=== PATIENT | female | born 1985 | race Caucasian/White ===

== ENCOUNTER 2017-01-30 23:35 | Inpatient (IN) | payer MEDICAID ==
[~2017-01-30] VITALS: Ht 167.6 cm; Wt 67.6 kg
--- NOTE | 2017-01-31 02:51 | NUR ---
RECEIVED 31 Y/O F FOR EVAL OF RLQ PAIN AND NAUSEA SINCE LAST NIGHT. RATES PAIN 10/10 AT THIS TIME, DENIES URINARY SYMPTOMS OR VOMITING/DIARRHEA. RESP E/U, NAD NOTED AT THIS TIME.
--- NOTE | 2017-01-31 02:54 | NUR ---
PT OFF UNIT VIA WHEELCHAIR FOR CT SCAN
[2017-01-31 03:08] LABS: BASOPHIL % 1.4 % (0-2); PLATELET COUNT 164 x10^3mcL (130-400); RED CELL DISTRIBUTION WIDTH 11.7 % (11.5-14.5)
[2017-01-31 03:11] LABS: CALCIUM 9.2 mg/dL (8.5-10.1); CHLORIDE SERUM 103 mmol/L (98-107); CREATININE SERUM 0.8 mg/dL (0.6-1.0); GFR1 > 60 mL/min; GLUCOSE SERUM 99 mg/dL (74-106); POTASSIUM SERUM 3.3 mmol/L (3.5-5.1); SODIUM SERUM 139 mmol/L (136-145)
[2017-01-31 03:15] LABS: ALBUMIN 4.6 g/dL (3.4-5.0); ALKALINE PHOSPHATASE 95 U/L (46-116); ALT/SGPT 39 U/L (14-59); AST/SGOT 12 U/L (15-37); BILIRUBIN TOTAL 0.92 mg/dL (0.20-1.00); LIPASE 316 IU/L (73-393); MAGNESIUM 2.3 mg/dL (1.8-2.4)
[2017-01-31 03:16] LABS: TOTAL PROTEIN, SERUM 8.4 g/dL (6.4-8.2)
[2017-01-31 03:29] LABS: microscopic required? NO
[2017-01-31 03:34] LABS: UA SPECIFIC GRAVITY >=1.030 (1.005-1.035); urine erythrocyte NEGATIVE (NEGATIVE)
--- NOTE | 2017-01-31 04:13 | NUR ---
REPORT CALLED TO JAMES RIVERA FOR CONTINUATION OF CARE.
[2017-01-31 05:09] LABS: CHOLESTEROL/HDL RATIO 2.7
[2017-01-31 05:15] LABS: FREE T4 1.04 ng/dL (0.76-1.46); FREE THYROXINE INDEX 2.7 ug/dL (1.4-4.5); T4(THYROXINE) 8.3 ug/dL (4.7-13.3)
--- NOTE | 2017-01-31 05:17 | NUR ---
RECEIVED FROM ER, TRANSPORTED VIA [facility]. ACCOMPANIED BY SIGNIFICANT OTHER, PT STATED OK TO HAVE SIGNIFICANT OTHER IN ROOM WHEN ASKING QUESTIONS. PT SOUGHT ADMISSION DUE TO RIGHT LOWER ABDOMINAL PAIN WITH NAUSEA AND VOMITTING. STATED PRIOR TO ADMISSION PAIN WAS SHARP AT 10/10 ON PAIN SCALE, STATED GOOD RELIEF FROM PAIN AFTER RECEIVING MEDICATIONS IN ER, DOWN TO 5/10 AT THIS TIME, WITHOUT NAUSEA. STARTED ORDERED IVF OF NS AT 110ML/HR TO IV SITE TO RIGHT AC, FLUSHED WELL. AAO X 4. SPEECH CLEAR AND APPROPRIATE. BREATHING EVEN AND UNLABORED ON ROOM AIR. HOB ELEVATED 30 DEG. UPPER SIDE RAILS RAISED, BED IN LOWEST POSITION. ORIENTED TO ROOM ENVIRONMENT, INSTRUCTED ON USE OF CALL LIGHT TO CALL FOR ASSISTANCE. INSTRUCTED NO EATING OR DRINKING.
[2017-01-31 05:26] LABS: AMPHETAMINE QUAL UR NONE DETECTED (NEG <=1000)
[2017-01-31 05:55] VITALS: BP 107/65
--- NOTE | 2017-01-31 06:08 | NUR ---
AWAKE AND ALERT, KEPT NPO SINCE ADMISSION. BREATHING EVEN AND UNLABORED ON ROOM AIR.
[2017-01-31 06:18] LABS: T3 TOTAL 1.09 ng/mL
--- NOTE | 2017-01-31 07:22 | NUR ---
OR NURSE NAV CALLED, STATED DR. GAMING WILL DO SURGERY AFTER 1ST CASE TODAY. GAVE REPORT. INFORMED DAY SHIFT NURSE MARY.
--- NOTE | 2017-01-31 07:45 | NUR ---
AWAKE,ALERT AND ORIENTED. STILL COMPLAINING OF ABD. PAIN 5/10 BUT DENIES NAUSEA AND VOMITTING.NPO FOR SX THIS AM. CONT. IV FLUIDS ORDERED.NO ACUTE RE4SP. DISTRESS NOTED. WILL CONT. PLAN OF CARE.
--- NOTE | 2017-01-31 08:14 | NUR ---
PT. WENT DOWN TO OR VIA MALLORY REPORT GIVEN TO OR NURSE.
--- NOTE | 2017-01-31 08:38 | NUR ---
[facility] REFERRAL RECEIVED ON 01/31/2017 FOR "ADMITTED W/ POTENTIAL RISK DIAGNOSIS". REFERRAL REASON DOES NOT MEET HIGH NUTRITION RISK PER HOSPITAL POLICY. THE PT WAS ADMITTED W/ ACUTE APPENDICITIS AND WILL BE SEEN AND PRIORITIZED BY THE NUTRITION SCREENING PRIORITIZING GUIDELINES LOW NUTRITION RISK AND SEEN W/IN [address]
[2017-01-31 09:00] VITALS: BP 95/54
--- NOTE | 2017-01-31 11:00 | NUR ---
PT.BACK FROM RECOVERY ROOM VIA [facility] AWAKE ,ALERT AND DENIES ANY PAIN AT THIS TIME. CALLLIGHT W/ IN REACH. MADE COMFORTABLE IN BED/. S/P LAP APPY W/ ABD/BAND AID X 3 CDI.CONT. IV FLUIDS ORDERED.NOACUTE DISTRESS NOTED.
[2017-01-31 12:52] VITALS: BP 96/60
[2017-01-31 17:13] VITALS: BP 122/80
--- NOTE | 2017-01-31 19:15 | NUR ---
AAO X 4. SPEECH CLEAR AND APPROPRIATE. BREATHING EVEN AND UNLABORED ON ROOM AIR. LUNG SOUNDS CLEAR. HOB ELEVATED 30 DEG. SINUS RHYTHM ON TELE. AMBULATED TO RESTROOM WITH STEADY GAIT. STATED SHE KEEPS VOIDING, WANTS HER IV FLUID RATE REDUCED. STATED HAS NOT PASSED GAS OR STOOL YET, BOWEL SOUNDS HYPOACTIVE. IVF OF NS AT 110ML/HR. STATED HAVING 8/10 PAIN TO ABDOMEN/SURGICAL SITE. MORPHINE 2MG ADMINISTERED SLOW IVP FOR PAIN.
--- NOTE | 2017-02-01 00:06 | NUR ---
EYES CLOSED, BREATHING EVEN AND UNLABORED ON ROOM AIR. HOB KEPT ELEVATED 30 DEG. UPPER SIDE RAILS KEPT RAISED. BED IN LOWEST POSITION, CALL LIGHT WITHIN EASY REACH. HR 58/MIN, SINUS IN RHYTHM
[2017-02-01 05:43] VITALS: BP 95/52
[2017-02-01 06:22] LABS: CALCIUM 8.4 mg/dL (8.5-10.1); CARBON DIOXIDE 26.7 mmol/L (21-32); CHLORIDE SERUM 107 mmol/L (98-107); CREATININE SERUM 0.7 mg/dL (0.6-1.0); GFR1 > 60 mL/min; GLUCOSE SERUM 97 mg/dL (74-106); MAGNESIUM 2.2 mg/dL (1.8-2.4); PHOSPHOROUS 4.2 mg/dL (2.5-4.9); POTASSIUM SERUM 3.7 mmol/L (3.5-5.1); SODIUM SERUM 141 mmol/L (136-145)
[2017-02-01 07:09] LABS: BASOPHIL % 0.4 % (0-2); RED CELL DISTRIBUTION WIDTH 12.8 % (11.5-14.5)
--- NOTE | 2017-02-01 07:12 | NUR ---
EYES CLOSED, BREATHING EVEN AND UNLABORED. STATED PASSED GAS ONCE, NO STOOL YET. ENCOURAGED TO AMBULATE. VERBALIZED UNDERSTANDING. ENDORSED TO NURSE ACOSTA
[2017-02-01 07:20] LABS: PLATELET COUNT 127 x10^3mcL (130-400)
--- NOTE | 2017-02-01 07:55 | NUR ---
AAO TIMES 4. TELE # 27 SR. VS'S STABLE. NO SOB. LUNGS CTA. NO SOB. 2O SAT ON RA 96%. BS'S ACTIVE TIMES 4. BOND STRONG. SCD BLE. PERIPHERAL PULSES PALPABLE. NO EDEMA. NO C/O PAIN. 3 BANDAIDS TO ABDOMEN CDI. COOPERATIVE AND PLEASANT.
[2017-02-01 11:05] VITALS: BP 103/54
--- NOTE | 2017-02-01 17:49 | NUR ---
AAO TIMES 4. TELE # 27 SR. VS'S STABLE. NO SOB. COOPERTIVE AND PLEASANT. NO C/O PAIN. IV SITE CDI. BANDAIDS TO ABDOMEN CDI. PT HAS AMBULATED AROUND UNIT TWICE TODAY, TOLERATED WELL. PT STATES SHE HASNT PASSED ANY GAS TODAY. SHE IS TOLERATING REG DIET, SHE IS EATING SLOWLY.
[2017-02-01 18:00] VITALS: BP 96/50
--- NOTE | 2017-02-01 19:30 | NUR ---
RECEIVED REPORT FROM MIGUEL MORAES. PT RESTING COMFORTABLY IN BED IN NO ACUTE DISTRESS OR DISCOMFORT. AAOX4. DENIES OF H/A/DIZINESS. M/S PT. DENIES OF ANY CHEST DISCOMFORT. PER PULSES STRONG. NEG ON EDEMA. SCDS APPLIED. IN RA WITH SAT OF 96%. BREATHING EVENLY AND UNLABORED. NO SOB NOTED. LUNGS CTA. BS ACTIVE. PT REPORTS TO HAVE PASSED GAS POST SX. BS HYPOACTIVE. LAST BM 01/30/17 FORMED STOOL PER PT. VODIS FREELY. PT ADMITS TO PRESSURE PAIN WHEN VOIDING. AMBULATES STEADILY. PT SP LAP APPY ON 01/31/17 3 INCISIONS ON THE ABD COVERED WITH BANDS AIDS THAT ARE CDI. DENIES OF ANY PAIN AT THIS TIME. IV ON RAC PATENT. SAFETY MEASURES ENSURED. INSTRUCTED PT TO CALL FOR ANY NEEDS/ASSISTANCE. CALL LIGHT WITHIN REACH. WILL CONT TO MONITOR PT.
[2017-02-01 21:11] VITALS: BP 98/52
--- NOTE | 2017-02-02 05:04 | NUR ---
PT SLEPT COMFORTABLY THROUGH OUT THE NIGHT. WAS IN NO ACUTE DISTRESS OR DISCOMFORT. SAFETY MEASURES WERE ENSURED. CALL LIGHT WITHIN REACH.
[2017-02-02 06:12] VITALS: BP 102/56; BP 96/55
[2017-02-02 06:25] LABS: BASOPHIL % 0.6 % (0-2); PLATELET COUNT 134 x10^3mcL (130-400); RED CELL DISTRIBUTION WIDTH 12.8 % (11.5-14.5)
[2017-02-02 06:44] LABS: CALCIUM 8.1 mg/dL (8.5-10.1); CARBON DIOXIDE 26.3 mmol/L (21-32); CHLORIDE SERUM 109 mmol/L (98-107); CREATININE SERUM 0.8 mg/dL (0.6-1.0); GFR1 > 60 mL/min; GLUCOSE SERUM 97 mg/dL (74-106); POTASSIUM SERUM 3.7 mmol/L (3.5-5.1); SODIUM SERUM 141 mmol/L (136-145)
--- NOTE | 2017-02-02 08:12 | NUR ---
AAO TIMES 4. NO TELE. MES SURG PATIENT. LUNGS CTA. NO SOB. O2 SAT ON RA 96%. BS'S ACTIVE TIMES 4. BOND STRONG. AMBULATING, STATES SHE IS PASSING GAS TODAY. PERIPHERAL PULSES PALPABLE. NO EDEMA. SCD BLE. COOPERATIVE AND PLEASANT.
--- NOTE | 2017-02-02 08:38 | NUR ---
DR SOLIS AND THE MEDICINE TEAM DID ROUNDS WITH THE PT AT 0838. THE PLAN IS TO DC HER HOME TODAY. SHE STATES SHE HAS BEEN PASSISNG GAS BUT NO BM. DR SOLIS HAD THE DR ORDER AN ENEMA AND LACTULOSE. SHE IS HAPPY WITH GOING HOME TODAY.
[2017-02-02 09:20] VITALS: BP 102/51
--- NOTE | 2017-02-02 09:48 | NUR ---
PT GIVEN ENEMA AT 0940 WITH LACTULOSE. PT WAS TOLD TO HOLD IT FOR 15 MINUTES IF POSSIBLE. SHE VERBALIZED "I UNDERSTAND".
--- NOTE | 2017-02-02 10:32 | NUR ---
PT STATES SHE HAD SOME DIARRHEA AND A FEW LUMPS OF STOOL. SHE STATES SHE FEELS BETTER THOUGH.
[2017-02-02] MEDS ORDERED: NORCO1 TA2 PO (13:11)
[2017-02-02] MEDS ORDERED: COL100 PO (13:17)
[2017-02-02] MEDS ORDERED: MOT800 PO (13:18)
[2017-02-02 14:52] VITALS: BP 102/51
[2017-02-02 15:05] VITALS: BP 116/63
== END 2017-02-02 15:23 | disposition home or self-care (01) | DRG 225 ==
LOC: ED 23:35 → DU 01-31 04:04 → MU 01-31 04:04 → DU 01-31 04:50 → MU 02-01 09:56
PROVIDERS: Emergency Medicine; Family Medicine; Surgery; ADMIT Family Medicine
PROC: 0DTJ4ZZ Resection of Appendix, Percutaneous Endoscopic Approach (ICD-10-PCS; principal; 2017-01-31 09:00)
DX: K35.80 Unspecified acute appendicitis (principal); N17.0 Acute kidney failure with tubular necrosis; E87.6 Hypokalemia; E78.5 Hyperlipidemia, unspecified; D64.9 Anemia, unspecified
CPT/HCPCS: 80307; 83880; 84439; 94150; J1170; J1644; J1885; J2250; J2270; J2405; J2543; J3010; J3490; J7030